=== PATIENT | female | born 1985 | race Caucasian/White ===

== ENCOUNTER 2017-02-14 19:02 | Emergency (ER) | payer BC ==
[2017-02-14 19:28] VITALS: RESP 16; TEMP 98.4; O2SAT 95
[2017-02-14 20:15] LABS: COLOR YELLOW; LEUKOCYTE ESTERASE,URINE NEGATIVE (NEGATIVE); NITRITE,URINE NEGATIVE (NEGATIVE)
[2017-02-14 20:29] LABS: WBC,URINE 0-1 /hpf (0-3)
[2017-02-14 20:30] LABS: BACTERIA 2+ /hpf (NONE SEEN); MUCUS 2+ /lpf (NONE-1+)
--- NOTE | 2017-02-14 20:43 | EDPHY ---
H & P Time Seen by Provider: 02/14/17 19:18 HPI/ROS: This patient presents with anxiety including 2 panic attacks over the last 2 nights with episodes of some hyperventilating as well. She has had insomnia over the last 2 nights as well sleeping only 3 or 4 hours. She relates the symptoms to upcoming tests in nursing school. She also has associated nausea. She notes some lesions on her tongue that started over the past couple days without significant pain associated with them. Otherwise no new symptoms except loose stool that she also attributes to anxiety having had similar episodes of anxiety in the past but not this severe. ROS: Constitutional: No fevers no significant fatigue HEENT: No nasal congestion no ear pain or sore throat no mouth pain despite the white spots on her tongue. Pulmonary: No cough or dyspnea currently Cardiovascular: No chest pain no calf swelling or pain GI: She does have some nausea but no vomiting vomiting or belly pain : Last menstrual period was normal timing. Psychiatric: No racing thoughts. No impulsive behavior. No significant depression or suicidal thoughts. 10 point ROS is otherwise negative Social History: Minimal caffeine less than 1 cup of coffee a day No drug use Rare alcohol She moved from [place] to [place] to go to a then nursing program is in her 1st year that program. 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 Eyes: Pupils equal and round no pallor or injection. ENT, Mouth: Mucous membranes moist. Geographic tongue. There are few white vesicles on the lateral tongue bilaterally Respiratory: There are no retractions, lungs are clear to auscultation. Cardiovascular: Regular rate and rhythm. Gastrointestinal: Abdomen is soft and nontender, no masses, bowel sounds normal. Neurological: GCS 15 with no focal sensory or motor deficits Skin: Warm and dry, no rashes. Musculoskeletal: Neck is supple nontender. Extremities are symmetrical, full range of motion. Psychiatric: Currently mood and affect normal with logical thought content. No pressured speech. No psychotic symptoms. She is pleasant with her mood and affect DIFFERENTIAL DIAGNOSIS: After history and physical exam differential diagnosis was considered for insomnia, situational anxiety, panic attack, stomatitis, , UTI Constitutional: Initial Vital Signs Temperature (C) 36.9 C 02/14/17 19:25 Heart Rate 104 H 02/14/17 19:25 Respiratory Rate 16 02/14/17 19:25 Blood Pressure 113/79 02/14/17 19:25 O2 Sat (%) 95 02/14/17 19:25 O2 Delivery Mode Room Air Allergies/Adverse Reactions: No Known Allergies Allergy (Unverified 02/14/17 19:24) Home Medications: Medication Instructions Recorded Propranolol HCl [Inderal 10mg (*)] 10 - 30 mg PO BID PRN #20 tab 02/14/17 Zaleplon [Sonata] 10 mg PO HS PRN #8 capsule 02/14/17 MDM/Departure - MDM Diagnostics: Urinalysis is unremarkable no significant abnormalities and urine is negative ED Course/Re-evaluation: I discussed stress management some detail with this patient. We also discussed anxiety and panic attack in insomnia. Will provide a small amount of sonata for try for insomnia) All if needed for panic attacks that do not respond to other relaxation approaches. We ruled out and UTI. Findings are not consistent with manic episode or other complicating factors. - Depart Disposition: Home, Routine, Self-Care Clinical Impression: Anxiety, Stomatitis Insomnia Qualifiers: Insomnia type: primary Qualified Code(s): F51.01 - Primary insomnia Condition: Good Instructions: Anxiety (ED) Additional Instructions: Diagnoses: 1. Anxiety 2. Insomnia 3. Stomatitis, (viral lesions in mouth) Plan: Daily exercise for 20 minutes or more Daily relaxation for 20 minutes or more Avoid Excessive stimulants (caffeine and similar) Sonata for sleep if needed Propranolol for anxiety if needed. Return for any significant worsening despite the treatment plan. Follow up with primary care physician listed below or primary care physician of her choice. Prescriptions: Propranolol HCl [Inderal 10mg (*)] 10 - 30 mg PO BID PRN #20 tab PRN Reason: Anxiety Zaleplon [Sonata] 10 mg PO HS PRN #8 capsule PRN Reason: insomnia Referrals: NONE *PRIMARY CARE P,. [Primary Care Provider] - As per Instructions Jordana Retana MD [Medical Doctor] - As per Instructions
[2017-02-14 20:52] VITALS: BP 104/75; PULSE 88
== END 2017-02-14 20:50 | disposition home or self-care (01) ==
LOC: CED 19:02
DX: F41.9 Anxiety disorder, unspecified (principal); K12.1 Other forms of stomatitis; F51.01 Primary insomnia
CPT/HCPCS: 81003-PO; 81015-PO; 81025-PO